=== PATIENT | male | born 1990 | race Caucasian/White ===

== ENCOUNTER 2020-06-15 15:20 | Emergency (ER) | payer OTHER, MEDICAID ==
[~2020-06-15] VITALS: Ht 170.2 cm; Wt 118.0 kg
[2020-06-15] MEDS ORDERED: SULFAMETHOXAZOLE/TRIMETHOPRIM 800/160MG TABLET PO ONE (16:15)
[2020-06-15] MEDS ORDERED: CEPHALEXIN 250MG CAPSULE PO ONE (16:15)
[2020-06-15] MEDS ORDERED: TETANUS, DIPHTHERIA, PERTUSSIS VAC/PF 0.5ML (>7YR OLD) IM ONE (16:15)
[2020-06-15] MEDS ORDERED: LIDOCAINE 1%/EPI 1:100,000 10 ML VIAL IJ ONE (16:15)
[2020-06-15] MEDS ORDERED: IBUPROFEN 600MG TABLET PO ONE (16:15)
[2020-06-15] MEDS ORDERED: LIDOCAINE HCL/EPINEPHRINE 1%-EPI 1:100,000 20 ML VIAL INFIL NR (16:30)
[2020-06-15 18:15] VITALS: BP 119/77
== END 2020-06-15 18:26 | disposition home or self-care (01) ==
LOC: ER 15:20
DX: S50.862A Insect bite (nonvenomous) of left forearm, initial encounter (principal); L02.414 Cutaneous abscess of left upper limb; L03.114 Cellulitis of left upper limb; W57.XXXA Bitten or stung by nonvenomous insect and other nonvenomous arthropods, initial encounter; Y93.84 Activity, sleeping; Y92.013 Bedroom of single-family (private) house as the place of occurrence of the external cause; Z23 Encounter for immunization
CPT/HCPCS: 10060; 90471; 90715; 99284; J3490

== ENCOUNTER 2025-09-18 19:18 | Emergency (ER) | payer MEDICAID, OTHER ==
[~2025-09-18] VITALS: Ht 170.2 cm; Wt 108.0 kg
[2025-09-18 19:28] VITALS: O2SAT 98
[2025-09-18 19:34] VITALS: TEMP 36.9
[2025-09-18] MEDS: KETOROLAC 15MG/ML VIAL IM ONE (21:47)
[2025-09-18 21:57] LABS: BASOPHILS % 0.3 % (0.0-2.0); EOSINOPHILS % 1.8 % (0.0-5.0); HEMATOCRIT. 47.3 % (42.0-52.0); HEMOGLOBIN. 15.6 g/dL (14.0-18.0); LYMPHOCYTES % 39.5 % (20.0-50.0); MEAN PLATELET VOLUME 7.9 fl (7.4-10.4); MONOCYTES % 8.8 % (2.0-8.0); NEUTROPHILS % 49.6 % (40.0-76.0); PLATELET 244 x1000/uL (130-400); RED BLOOD CELL COUNT 4.98 mill/uL (4.7-6.1); RED CELL DISTRIBUTION WIDTH 13.4 % (11.6-14.6)
[2025-09-18 22:11] LABS: CREATININE 0.9 mg/dL (0.6-1.3)
[2025-09-18 22:12] LABS: UREA NITROGEN BLOOD 11 mg/dL (9-23)
[2025-09-18 22:14] LABS: TROPONIN I HIGH SENSITIVITY < 4 ng/L (3.0-53)
[2025-09-18] MEDS ORDERED: IBUP-2028 MT (22:49)
[2025-09-18 23:13] VITALS: BP 112/71; PULSE 84; RESP 18; O2SAT 96
== END 2025-09-18 23:18 | disposition home or self-care (01) ==
LOC: ER 19:18
DX: R07.9 Chest pain, unspecified (principal); R05.9 Cough, unspecified
CPT/HCPCS: 99285; 71045; 80048; 85025; 85379; 84484; 36415; 93005; 96372; J1885